=== PATIENT | female | born 1980 | race Caucasian/White ===

== ENCOUNTER → 2017-07-07 | Emergency (ER) | payer BC ==
[2017-07-07 23:19] VITALS: BP 133/75; PULSE 117; TEMP 98.1; BMI 22.8
--- NOTE | 2017-07-08 00:02 | PDOC ---
History of Present Illness - General Chief Complaint: Asthma Stated Complaint: ASTHMA Time Seen by Provider: 07/08/17 00:02 Past History - Past Medical History Allergies/Adverse Reactions: Allergies Allergy/AdvReac Type Severity Reaction Status Date / Time No Known Allergies Allergy Verified 07/07/17 23:19 Home Medications: Ambulatory Orders Cephalexin Monohydrate [Keflex -] 500 mg PO Q6H #40 capsule 09/11/13 No Home Medications 0 dose .ROUTE UTDICT 09/11/13 Oxycodone HCl/Acetaminophen [Percocet 5-325 mg Tablet -] 1 - 2 tab PO Q4H #20 tablet 09/11/13 Sulfamethoxazole/Trimethoprim [Bactrim DS -] 1 tab PO BID #20 tablet 09/11/13 Asthma: Yes - Suicide/Smoking/Psychosocial Hx Smoking Status: Yes Smoking History: Never smoked Number of Cigarettes Smoked Daily: 0 Hx Alcohol Use: No Substance Use Type: None *Physical Exam - Vital Signs Last Vital Signs Temp Pulse Resp BP Pulse Ox 98.1 F 117 H 20 133/75 97 07/07/17 23:16 07/07/17 23:16 07/07/17 23:16 07/07/17 23:16 07/07/17 23:16
== END | disposition left against medical advice (07) ==
LOC: JER 23:15
DX: Z53.21 Procedure and treatment not carried out due to patient leaving prior to being seen by health care provider (principal)
CPT/HCPCS: 99281-25

== ENCOUNTER 2019-06-20 23:53 | Emergency (ER) | payer BC ==
[2019-06-21 00:10] VITALS: BP 121/75; PULSE 100; TEMP 98.4; BMI 23.8
[2019-06-21] MEDS ORDERED: ACETAMINOPHEN 325 MG TABLET (FP) PO ONE (00:15)
[2019-06-21] MEDS ORDERED: DIPHTH,PERTUSS(ACELL),TET 0.5 ML DISP.SYRIN IM ONE ×2 (00:16→00:27)
[2019-06-21] MEDS ORDERED: LORazepam 0.5 MG TABLET ONE (00:23)
[2019-06-21] MEDS ORDERED: LORazepam 0.5 MG TABLET PO ONE (00:23)
[2019-06-21] MEDS ORDERED: ACETAMINOPHEN 325 MG TABLET (FP) ONE (00:23)
--- NOTE | 2019-06-21 00:26 | PDOC ---
History of Present Illness - General Chief Complaint: Laceration Stated Complaint: LACERATION Time Seen by Provider: 06/21/19 00:11 - History of Present Illness Initial Comments: Megan Wilson is a 38yo with a PMH of asthma who presents with a RLE laceration. She states that she was at home cleaning when she dropped a chipped mug. The chipped portion hit the inside of her right leg just above the ankle, causing a laceration. She reports that there was "a lot of blood" from the cut, and she pressed clothing over the cut to stop the bleeding. Ms Wilson reports that she is able to move her distal RLE without difficulty and has intact sensation over her entire foot. She is not sure when she last received a tetanus shot. Past History - Past Medical History Allergies/Adverse Reactions: Allergies Allergy/AdvReac Type Severity Reaction Status Date / Time No Known Allergies Allergy Verified 06/21/19 00:09 Home Medications: Ambulatory Orders Cephalexin Monohydrate [Keflex -] 500 mg PO Q6H #40 capsule 09/11/13 No Home Medications 0 dose .ROUTE UTDICT 09/11/13 Oxycodone HCl/Acetaminophen [Percocet 5-325 mg Tablet -] 1 - 2 tab PO Q4H #20 tablet 09/11/13 Sulfamethoxazole/Trimethoprim [Bactrim DS -] 1 tab PO BID #20 tablet 09/11/13 Asthma: Yes COPD: No - Suicide/Smoking/Psychosocial Hx Smoking Status: Yes Smoking History: Never smoked Number of Cigarettes Smoked Daily: 0 Hx Alcohol Use: No Substance Use Type: None Review of Systems - Review of Systems Comments:: General: No fevers, no chills, no weight or appetite change, no malaise HEENT: No changes in vision, no changes in hearing, no congestion, no sore throat CV: No chest pain, no palpitations, no LE edema Pulm: No SOB, no cough, no wheezing GI: No nausea or vomiting, no change in bowel habits, no melena : No frequency, no urgency, no dysuria Musc: No back pain, no joint swelling, no recent injury Skin: No rash, no lesions, no erythema Endo: No excessive thirst, no heat/cold intolerance Heme: No unusual bruising or bleeding, no swollen glands Neuro: No syncope, no numbness/tingling, no focal weakness Vasc: No claudication Psych: No recent change in mood, no SI or HI *Physical Exam - Vital Signs Last Vital Signs Temp Pulse Resp BP Pulse Ox 98.4 F 100 H 18 121/75 100 06/21/19 00:09 06/21/19 00:09 06/21/19 00:09 06/21/19 00:09 06/21/19 00:09 - Physical Exam Comments: General: Extremely anxious but in no acute distress HEENT: Atraumatic, PERRL, EOMI, MMM, voice normal Cards: RRR, no murmur appreciated Pulm: Comfortable on room air Ext: 4cm superficial laceration on medial distal RLE just proximal to ankle; lac through epidermis and dermis but not subQ tissue. No active bleeding. 2-3 small superficial abrasions distal to lac. Ankle and toe ROM intact, sensation to light touch over distal foot intact. Skin: Normal color, no rashes. Lac as above Neuro: A&Ox3, CN grossly intact, normal speech, motor/sensory grossly intact and symmetric Psych: Crying, extremely anxious Procedures - Laceration/Wound Repair Right Medial Leg Wound Length: 2.6 to 5.0 cm Wound Explored: clean Wound's Depth, Shape: superficial, linear Irrigated w/ Saline: Yes Anesthesia: 1% Lidocaine (5cc) Amount of Anesthetic (ccs): 5 Wound Debrided: No debridement required Wound Repaired With: Sutures Suture Size/Type: 4:0, proline Number of Sutures: 6 Layer Closure: No Sterile Dressing Applied: Yes Medical Decision Making - Medical Decision Making 06/21/19 00:16 Megan Wilson is a 38yo with a PMH of asthma who presents with a 4cm clean, linear RLE laceration sustained when she dropped a chipped mug onto her leg. - Laceration to be cleaned and repaired - Acetaminophen for pain - Tetanus 06/21/19 00:26 - Extremely anxious, 0.5mg PO ativan given - Will repair lac when calmed down 06/21/19 01:31 - Laceration cleaned and repaired. The wound was anesthetized using 5cc of 1% lidocaine. It was then irrigated with copious saline and thoroughly explored. The laceration was closed using 6 simple interrupted stitches using 4-0 proline suture. The wound edges were well approximated, and adequate hemostasis was achieved. - Ms Wilson was instructed regarding wound care, suture removal, and return precautions. She stated understanding and agreement. - D/c home Seen with Dr Turk. Rosa Mariacampos Grider PGY2 *DC/Admit/Observation/Transfer Diagnosis at time of Disposition: Laceration - Discharge Dispostion Disposition: HOME Condition at time of disposition: Stable Decision to Admit order: No - Referrals Referrals: Jose Curry MD [Primary Care Provider] - - Patient Instructions Printed Discharge Instructions: DI for Laceration Repair Additional Instructions: Discharge Instructions: You were seen in the emergency department with a laceration to your leg. The laceration was repaired with 6 stitches. Home Care: - You should avoid getting the wound wet for at least 24 hours. After 24hrs, you may wash your leg and shower normally. It is OK to use a plain soap and allow water to run over the wound. Do not scrub at the wound, and pat dry after washing. Do not rub with a towel. - After 24hrs you may remove the bandage and leave the wound open to air. - Do not apply any lotions, ointments, creams or other topical medications to the wound - Some redness and swelling is expected after an injury. You may see a small amount of bleeding or pinkish drainage on the bandage when you remove it. This is normal. - You may use acetaminophen (Tylenol) or ibuprofen (Advil, Motrin) as needed for pain. Please follow the directions on the bottle for dosing information. Follow Up: - You will need to be seen in 7-10 days for suture removal. You can return to the emergency room or see your regular doctor. - Seek immediate medical care if your wound becomes significantly more painful, swollen, red, you have a large amount of thick drainage, you have fevers to 101F or higher, or you have red streaking from the wound. - Post Discharge Activity Forms/Work/School Notes: Back to Work
--- NOTE | 2019-06-21 00:46 | PDOC ---
Documentation entered by Jeffrey Villagomez SCRIBE, acting as scribe for Tea Turk DO. Tea Turk DO: This documentation has been prepared by the Dahlia mcmillan Xhesika, SCRIBE, under my direction and personally reviewed by me in its entirety. I confirm that the documentation accurately reflects all work, treatment, procedures, and medical decision making performed by me. Attending Attestation - Resident Resident Name: Rosa Maria Grider - ED Attending Attestation I have performed the following: I have examined & evaluated the patient, The case was reviewed & discussed with the resident, I agree w/resident's findings & plan, Exceptions are as noted - HPI HPI: 06/21/19 00:28 The patient is a 38 year old female with a significant PMH of asthma who presents to the emergency department with R calf laceration prior to arrival. Patient states she is expecting company over tomorrow, was cleaning, and a chipped glass cup dropped on her R calf. The patient does not remember when her last tetanus was. Allergies: NKDA - Physicial Exam PE: 06/21/19 00:30 GENERAL: Awake, alert, and fully oriented. (+) panicking. (+) hyperventilating. HEAD: No signs of trauma EXTREMITIES: (+) R medial calf 4cm superficial laceration. No active bleeding. Normal range of motion, no edema. No clubbing or cyanosis. No cords, erythema, or tenderness NEUROLOGICAL: Cranial nerves II through XII grossly intact. SKIN: Warm, Dry, normal turgor, laceration to R leg as described above 06/21/19 00:35 - Medical Decision Making 06/21/19 00:35 I, Dr. Tea Turk DO, attest that this document has been prepared under my direction and personally reviewed by me in its entirety. I further attest, that it accurately reflects all work, treatment, procedures and medical decision -making performed by me. a/p: 38yo female with R leg laceration after dropping a coffee cup earlier tonight -states there was a chip in the cup and the cup cut her -will need tetanus updated -will need wound repair -pt panicking and having an anxiety attack - will give a dose of ativan to calm her down. discussed with the patien -will monitor and reassess 06/21/19 01:01 wound has been repaired by the resident well approx pt stable for dc to home
== END 2019-06-21 01:25 | disposition home or self-care (01) ==
LOC: JER 23:53
PROC: 0HQKXZZ Repair Right Lower Leg Skin, External Approach (ICD-10-PCS; principal; 2019-06-20)
DX: S81.811A Laceration without foreign body, right lower leg, initial encounter (principal); W45.8XXA Other foreign body or object entering through skin, initial encounter; Y93.89 Activity, other specified; Y92.89 Other specified places as the place of occurrence of the external cause
CPT/HCPCS: 90715; 99282-25

== ENCOUNTER 2019-06-30 11:09 | Emergency (ER) | payer BC | END 2019-06-30 11:45 | disposition home or self-care (01) | LOC: JERFT 11:09 ==